=== PATIENT | female | born 1985 ===

== ENCOUNTER 2024-03-09 09:42 | Outpatient (CLI) | payer OTHER | END 2024-03-09 09:51 | disposition home or self-care (01) | LOC: PRENATAL 09:42 | PROVIDERS: ATTEND Obstetrics & Gynecology Maternal & Fetal Medicine | DX: O36.80X0 Pregnancy with inconclusive fetal viability, not applicable or unspecified (principal); Z36.82 Encounter for antenatal screening for nuchal translucency; O09.529 Supervision of elderly multigravida, unspecified trimester; O36.4XX0 Maternal care for intrauterine death, not applicable or unspecified; Z3A.11 11 weeks gestation of pregnancy ==

== ENCOUNTER 2024-05-10 13:25 | Outpatient (CLI) | payer OTHER | END 2024-05-10 13:26 | disposition home or self-care (01) | LOC: PRENATAL 13:25 | PROVIDERS: ATTEND Obstetrics & Gynecology Maternal & Fetal Medicine | DX: O44.00 Complete placenta previa NOS or without hemorrhage, unspecified trimester (principal); O09.529 Supervision of elderly multigravida, unspecified trimester; O36.4XX0 Maternal care for intrauterine death, not applicable or unspecified ==

== ENCOUNTER → 2024-05-24 10:35 | Outpatient (CLI) | payer OTHER | END | disposition home or self-care (01) | LOC: PRENATAL 10:35 | PROVIDERS: ATTEND Obstetrics & Gynecology Maternal & Fetal Medicine | DX: O35.00X0 Maternal care for (suspected) central nervous system malformation or damage in fetus, unspecified, not applicable or unspecified (principal); O35.3XX0 Maternal care for (suspected) damage to fetus from viral disease in mother, not applicable or unspecified; O09.529 Supervision of elderly multigravida, unspecified trimester; O26.859 Spotting complicating pregnancy, unspecified trimester; Z14.8 Genetic carrier of other disease; Z3A.21 21 weeks gestation of pregnancy ==

== ENCOUNTER → 2024-08-14 09:52 | Outpatient (CLI) | payer OTHER | END | disposition home or self-care (01) | LOC: PRENATAL 09:52 | PROVIDERS: ATTEND Obstetrics & Gynecology Maternal & Fetal Medicine | DX: O09.529 Supervision of elderly multigravida, unspecified trimester (principal); O36.4XX0 Maternal care for intrauterine death, not applicable or unspecified; O26.859 Spotting complicating pregnancy, unspecified trimester; O99.019 Anemia complicating pregnancy, unspecified trimester; Z3A.33 33 weeks gestation of pregnancy ==